=== PATIENT | female | born 1950 | race African-American/Black ===

== ENCOUNTER 2021-06-03 16:29 | Emergency (ER) | payer MEDICAID, OTHER ==
[~2021-06-03] VITALS: Ht 162.6 cm; Wt 73.5 kg
[2021-06-03 16:33] VITALS: BP 119/80
--- NOTE | 2021-06-03 16:45 | NUR ---
70 YEAR OLD FEMALE BIBA FROM PRIMARY CARE DOCTOR FOR ELEVATED BP. PT STATES SHE WAS THERE FOR A PHYSICAL BUT WHEN THEY DID VS HER BP WAS 180/120 AND WAS GIVEN CLONIDINE. PT STATES SHE FELT LETHARGIC AFTER CLONIDINE BUT IS STARTING TO FEEL SLOWLY BETTER. PT BP 116/66, HR 60. PT AOX4, BREATHING EVEN AND UNLABORED, SKIN WARM AND DRY. BED IN LOWEST POSITION, LOCKED, BED RAIL UPX1. PMH - DM2, HTN ALLERGIES - NKA
--- NOTE | 2021-06-03 17:04 | NUR ---
PT ALERT AND AWAKE, BREATHING EVEN AND UNLABORED. NO DISTRESS NOTED. ALL NEEDS MET AT THIS TIME WILL CONTINUE TO MONITOR
--- NOTE | 2021-06-03 17:13 | NUR ---
DAUGHTER AT BEDSIDE OF PT, STATES THAT SHE IS MUCH MORE SLOWER TO SPEECH THAN NORMAL. ABBI VALERA MADE AWARE
[2021-06-03 17:28] LABS: BASOPHILS # (AUTO) 0.1 K/uL (0.00-0.22); BASOPHILS % (AUTO) 1.9 % (0.0-2.0); EOSINOPHILS # (AUTO) 0.2 K/uL (0-0.4); EOSINOPHILS % (AUTO) 3.4 % (0.0-4.0); HEMOGLOBIN 12.3 g/dL (12.0-16.0); LYMPHOCYTES % (AUTO) 36.7 % (20.5-51.1); MEAN CORPUSCULAR HEMOGLOBIN 29 pg (27-31); MEAN CORPUSCULAR HGB CONC 33 g/dL (33-37); MEAN CORPUSCULAR VOLUME 88.2 fL (80-94); MONOCYTES # (AUTO) 0.6 K/uL (0.8-1.0); MONOCYTES % (AUTO) 10.7 % (1.7-9.3); NEUTROPHILS # (AUTO) 2.6 K/uL (1.8-7.7); NEUTROPHILS % (AUTO) 47.3 % (42.2-75.2); PLATELET COUNT (AUTO) 207 K/uL (140-450); RED CELL DISTRIBUTION WIDTH 12.9 % (11.6-13.7); WHITE BLOOD COUNT (AUTO) 5.6 K/uL (4.8-10.8)
--- NOTE | 2021-06-03 17:38 | NUR ---
ABBI VALERA AT BEDSIDE TALKING TO PT AND DAUGHTER
[2021-06-03 17:45] LABS: ANION GAP 7.8 (8-16); CARBON DIOXIDE 29.7 mmol/L (21-32); CREATININE 0.9 mg/dL (0.6-1.3); POTASSIUM 3.5 mmol/L (3.5-5.1); TOTAL BILIRUBIN 0.9 mg/dL (0.0-1.0)
[2021-06-03] MEDS ORDERED: NACL 0.9% 1,000 ML IV ONE (19:05)
--- NOTE | 2021-06-03 19:12 | NUR ---
REPORT RECEIVED FROM ELVIN TOLENTINO FOR CONTINUATION OF CARE AT THIS TIME.
--- NOTE | 2021-06-03 19:12 | NUR ---
REPORT GIVEN TO GRISELDA OCONNOR, TRANSFER OF CARE AT THIS TIME
--- NOTE | 2021-06-03 19:30 | NUR ---
PATIENT LAYING IN BED LOCKED IN LOWEST POSITION, X1 SIDE RAIL UP, HOB ELEVATED. BREATHING EVEN AND UNLABORED, PATIENT CONNECTED TO MONITOR W VSS 123/84BO, 61HR, 96 O2. PATIENT REPORTS SHE FEELS MUCH BETTER, FEELING MORE ENERGY AND IS ABLE TO FOCUS MORE. PATIENT DENIES ANY BLURRY VISION, PAIN, CHEST PAIN, SOB. NAD NOTED, WILL CONTINUE TO MONITOR. SIGNIFICANT OTHER AT BEDSIDE.
--- NOTE | 2021-06-03 20:15 | NUR ---
PATIENT AMBULATED TO BATHROOM W STEADY GAIT.
--- NOTE | 2021-06-03 20:25 | NUR ---
Dr. Ames examining patient.
--- NOTE | 2021-06-03 20:33 | NUR ---
ERMD AT BEDSIDE.
[2021-06-03 21:10] VITALS: BP 125/88
--- NOTE | 2021-06-03 21:10 | NUR ---
Patient discharged with v/s stable. Written and verbal after care instructions given and explained. Patient verbalized understanding. Ambulatory with steady gait. All questions addressed prior to discharge. Advised to follow up with PMD.
== END 2021-06-03 21:10 | disposition home or self-care (01) ==
LOC: MED 16:29
DX: E86.0 Dehydration (principal); T46.5X5A Adverse effect of other antihypertensive drugs, initial encounter; R53.83 Other fatigue; R03.0 Elevated blood-pressure reading, without diagnosis of hypertension; R11.0 Nausea; R41.0 Disorientation, unspecified; E11.9 Type 2 diabetes mellitus without complications; I10 Essential (primary) hypertension; Y92.89 Other specified places as the place of occurrence of the external cause
CPT/HCPCS: 36415; 70450; 71045; 80053; 84484; 85025; 93005; 96360; 99284; J7030